=== PATIENT | female | born 1990 | race Caucasian/White ===

== ENCOUNTER 2024-11-24 21:43 | Emergency (ER) | payer BC ==
[2024-11-24] MEDS ORDERED: SODIUM CHLORIDE 0.9% 500 ML IV ONE (22:20)
[2024-11-24 22:32] LABS: BASO # 0.0 10*3/uL (0.0-0.1); BASO % 0.5 % (0.0-1.0); EOS # 0.1 10*3/uL (0.0-0.4); EOS % 1.4 % (1.0-4.0); MEAN CELL VOLUME 91.1 fl (81.0-99.0); MEAN CORPUSCULAR HGB 30.0 pg (27.0-31.0); MEAN PLATELET VOLUME 10.8 fl (9.6-12.3); MONO # 0.6 10*3/uL (0.1-1.0); MONO % 8.4 % (3.0-9.0); NEUT # 4.9 10*3/uL (2.3-7.9); NEUT % 73.1 % (47.0-73.0); NUCLEATED RED BLOOD CELL 0.0 % (0.0-0.0); NUCLEATED RED BLOOD CELL 0.0 10*3/uL (0.0-0.0); PLATELET COUNT AUTOMATED 222 10*3/uL (130-400); RED CELL DISTRI WIDTH 11.8 % (0-14.5)
[2024-11-24 22:51] LABS: BILIRUBIN Negative (Negative); BLOOD 1+ (Negative); CLARITY Clear (Clear); COLOR Yellow (Yellow); KETONE Negative (Negative); LEUKO ESTERASE 1+ (Negative); NITRITE Negative (Negative); PH 6.0 (4.5-8.0); SPECIFIC GRAVITY 1.010 (1.001-1.030); UROBILINOGEN 1.0 E.U./dl (0.0-1.0)
[2024-11-24 22:55] LABS: BUN 9 mg/dl (9-23); CPK 38 U/L (34-171); SGPT/ALT 10 U/L (5-49)
[2024-11-24 22:56] LABS: ETHYL ALCOHOL < 3.0 mg/dl (<3)
[2024-11-24 23:13] LABS: EPITHELIAL CELLS 21-30; WBC 16-20 wbc/hpf (0-5)
[2024-11-24 23:14] LABS: BACTERIA 2+
[2024-11-24] MEDS ORDERED: MACROBID100 M1 PO (23:22)
[2024-11-24] MEDS ORDERED: Nitrofurantoin Monohydrate/N 100 MG CAP PO ONE (23:25)
== END 2024-11-25 | disposition home or self-care (01) ==
LOC: ED 21:43
PROVIDERS: Emergency Medicine
DX: N39.0 Urinary tract infection, site not specified (principal); R55 Syncope and collapse; E16.2 Hypoglycemia, unspecified